=== PATIENT | male | born 1955 | race Caucasian/White ===

== ENCOUNTER 2018-05-10 12:28 | Inpatient (IN) | payer SELFPAY ==
[2018-05-10] MEDS ORDERED: NS 1,000 ML IV ONE ×3 (13:09→15:31)
[2018-05-10] MEDS ORDERED: INSULIN REGULAR HUMAN 100 UNIT, COSIGN. REQUIRED 1 EA in NS 100 ML IV ONE ×2 (13:10→14:20)
--- NOTE | 2018-05-10 13:21 | EDPHY ---
H & P Stated Complaint: N/V since yesterday. BGL in 600's Time Seen by Provider: 05/10/18 12:59 HPI/ROS: CHIEF COMPLAINT: Vomiting, hyperglycemia HISTORY OF PRESENT ILLNESS: 62-year-old male with diabetes presents with vomiting and hyperglycemia. Onset of nausea, fever and myalgias yesterday morning. Persistent vomiting since yesterday, unable to tolerate oral fluids or food. Has an insulin pump and has been bolusing with insulin regularly because of elevated blood sugar since yesterday. However blood sugar prior to arrival was 600. Continues to have a fever today, associated with mild myalgias and a slight cough. No abdominal pain or diarrhea. REVIEW OF SYSTEMS: complete 10 point ROS reviewed and is negative except for the noted elements in the HPI - Personal History Current Tetanus Diphtheria and Acellular Pertussis (TDAP): No - Medical/Surgical History Hx Asthma: No Hx Chronic Respiratory Disease: No Hx Diabetes: Yes Hx Cardiac Disease: No Hx Renal Disease: No Hx Cirrhosis: No Hx Alcoholism: No Hx HIV/AIDS: No Hx Splenectomy or Spleen Trauma: No Other PMH: DM type 1, high cholesterol, high BP - Social History Smoking Status: Never smoked Alcohol Use: Sober Drug Use: None - Physical Exam Exam: General Appearance: Alert, pleasant Eyes: Pupils equal and round, no conjunctival pallor or injection ENT, Mouth: Mucous membranes moist Neck: Normal inspection Respiratory: Lungs are clear to auscultation Cardiovascular: Regular rate and rhythm Gastrointestinal: Abdomen is soft and nontender Neurological: A&O, nonfocal exam Skin: Warm and dry Extremities: Nontender, no pedal edema Psychiatric: Mood and affect normal Constitutional: Initial Vital Signs Temperature (C) 36.8 C 05/10/18 12:35 Heart Rate 72 05/10/18 12:35 Respiratory Rate 20 05/10/18 12:35 Blood Pressure 131/57 H 05/10/18 12:35 O2 Sat (%) 97 05/10/18 12:35 O2 Delivery Mode Room Air Allergies/Adverse Reactions: No Known Allergies Allergy (Verified 05/10/18 12:38) Home Medications: Medication Instructions Recorded Aspirin [Aspirin 81mg (*)] 81 mg PO DAILY 05/10/18 Atenolol [Tenormin 50 mg (*)] 50 mg PO DAILY 05/10/18 Insulin Pump, Patient Own 1 ea MISC AD 05/10/18 Lisinopril [Zestril 20 mg (*)] 20 mg PO DAILY 05/10/18 Simvastatin [Zocor] 20 mg PO DAILY 05/10/18 Medical Decision Making - Diagnostics EKG Interpretation: EKG interpreted by me reveals normal sinus rhythm, rate 68, IVCD, no ST or T segment changes. Interpretation: Abnormal EKG Imaging Results: Imaging Impressions Chest X-Ray 05/10/18 13:18 Impression: Cardiomegaly with mild peribronchial thickening that could be related to fluid overload or less likely bronchitis. Imaging: I viewed and interpreted images myself ED Course/Re-evaluation: This patient presents with hyperglycemia and vomiting, most likely secondary to DKA. IV normal saline 2 L ordered. Patient has difficult IV access and lab tests were delayed. Ultimately two peripheral lines were established. Venous pH is 7.1 and serum ketones present. Consistent with DKA. DKA protocol initiated, including insulin drip. Patient discontinued his insulin pump upon initiation of the insulin drip. Does not meet SIRS criteria. Chest x-ray reveals cardiomegaly and possible fluid overload; no evidence of pneumonia. The patient denies shortness of breath or prior history of pulmonary edema. BNP sent. The hospitalist service was consulted for admission. Pt remained stable throughout his ED stay. I spent a total of 40 minutes of critical care time in obtaining history, performing a physical exam, bedside monitoring of interventions, collecting and interpreting tests and discussion with consultants but not including time spent performing procedures. Differential Diagnosis: Differential diagnosis includes though is not limited to pneumonia, influenza, gastroenteritis, bowel obstruction, acute coronary syndrome. - Data Points Laboratory Results: Laboratory Results 05/10/18 13:53 05/10/18 05/10/18 05/10/18 13:57 13:53 13:52 POC Hgb POC Hct Puncture Site VENOUS Patient Temperature 37.0 DEGREES DEGREES VBG pH 7.15 L (7.31-7.42) VBG HCO3 11 mEQ/L L mEQ/L (22-26) VBG Total CO2 12 mEq/L L mEq/L (21-27) VBG O2 Saturation 68 % % (65-75) VBG Base Excess -16.9 mEq/L L mEq/L (-2.5-2.5) Mixed VBG pCO2 34 mmHg L mmHg (40-44) Mixed VBG pO2 45 mmHG H mmHG (35-40) POC Sodium Sodium 136 mEq/L mEq/L (135-145) POC Potassium Potassium 5.6 mEq/L H mEq/L (3.5-5.2) POC Chloride Chloride 101 mEq/L mEq/L (97-110) Carbon Dioxide 10 mEq/l L mEq/l (22-31) Anion Gap 25 mEq/L H mEq/L (6-14) POC BUN BUN 63 mg/dL H mg/dL (7-23) Creatinine 1.9 mg/dL H mg/dL (0.7-1.3) POC Creatinine Estimated GFR 36 Glucose 715 mg/dL H* mg/dL (70-100) POC Glucose Calcium 8.6 mg/dL mg/dL (8.5-10.4) Beta-Hydroxybutyrate 8.87 mmol/L H mmol/L (0.02-0.27) Specimen Hemolysis 103 Nasal Influenza A PCR NEGATIVE FOR FLU A (NEGATIVE) Nasal Influenza B PCR NEGATIVE FOR FLU B (NEGATIVE) 05/10/18 05/10/18 12:47 12:40 POC Hgb 18.7 gm/dL H gm/dL (13.7-17.5) POC Hct 55 % H % (40-51) Puncture Site Patient Temperature VBG pH VBG HCO3 VBG Total CO2 VBG O2 Saturation VBG Base Excess Mixed VBG pCO2 Mixed VBG pO2 POC Sodium 136 mEq/L mEq/L (135-145) Sodium 136 mEq/L mEq/L (135-145) POC Potassium 5.1 mEq/L H mEq/L (3.3-5.0) Potassium 5.9 mEq/L H mEq/L (3.5-5.2) POC Chloride 102 mEq/L mEq/L (97-110) Chloride 98 mEq/L mEq/L (97-110) Carbon Dioxide 6 mEq/l L* mEq/l (22-31) Anion Gap 32 mEq/L H mEq/L (6-14) POC BUN 55 mg/dL H mg/dL (7-23) BUN 59 mg/dL H mg/dL (7-23) Creatinine 2.1 mg/dL H mg/dL (0.7-1.3) POC Creatinine 2.0 mg/dL H mg/dL (0.7-1.3) Estimated GFR 32 Glucose 753 mg/dL H* mg/dL (70-100) POC Glucose > 700 mg/dL H* mg/dL (70-100) Calcium 9.5 mg/dL mg/dL (8.5-10.4) Beta-Hydroxybutyrate 8.37 mmol/L H mmol/L (0.02-0.27) Specimen Hemolysis Nasal Influenza A PCR Nasal Influenza B PCR Medications Given: Sodium Chloride (Ns) 1,000 mls @ 500 mls/hr IV CONT ATILIO Stop: 11/06/18 16:44 Last Admin: 05/10/18 16:34 Dose: 1,000 mls Discontinued Medications Sodium Chloride (Ns) 1,000 mls @ 1,000 mls/hr IV EDNOW ONE PRN Reason: Protocol Stop: 05/10/18 14:08 Last Admin: 05/10/18 13:05 Dose: 1,000 mls Sodium Chloride (Ns) 1,000 mls @ 1,000 mls/hr IV EDNOW ONE PRN Reason: Protocol Stop: 05/10/18 15:08 Last Admin: 05/10/18 14:05 Dose: 1,000 mls Insulin Human Regular 100 unit / Miscellaneous Medication 1 ea/ Sodium Chloride 101 mls @ 0 mls/hr IV EDNOW ONE; Per Protocol PRN Reason: Protocol Stop: 05/10/18 13:11 Last Admin: 05/10/18 19:34 Dose: Not Given Insulin Human Regular 100 unit / Miscellaneous Medication 1 ea/ Sodium Chloride 101 mls @ 0 mls/hr IV EDNOW ONE; Per Protocol PRN Reason: Protocol Stop: 05/10/18 14:21 Last Admin: 05/10/18 16:11 Dose: 11.1 mls Sodium Chloride (Ns) 1,000 mls @ 0 mls/hr IV ONCE ONE PRN Reason: Wide Open Stop: 05/10/18 15:32 Last Admin: 05/10/18 15:30 Dose: 1,000 mls Point of Care Test Results: Chemistry 05/10/18 12:47 POC Sodium 136 mEq/L mEq/L (135-145) POC Potassium 5.1 mEq/L H mEq/L (3.3-5.0) POC Chloride 102 mEq/L mEq/L (97-110) POC BUN 55 mg/dL H mg/dL (7-23) POC Creatinine 2.0 mg/dL H mg/dL (0.7-1.3) POC Glucose > 700 mg/dL H* mg/dL (70-100) ISTAT H&H 05/10/18 12:47 POC Hgb 18.7 gm/dL H gm/dL (13.7-17.5) POC Hct 55 % H % (40-51) Departure - Departure Disposition: [facility] Inpatient Acute Clinical Impression: DKA (diabetic ketoacidoses) Condition: Fair
[2018-05-10] MEDS ORDERED: ALTEPLASE 2 MG VIAL IVP PRN (15:04)
[2018-05-10] MEDS ORDERED: ONDANSETRON 4 MG/2 ML VIAL IVP PRN (15:36)
[2018-05-10] MEDS ORDERED: PROMETHAZINE HCL 25 MG/ML INJ IVP PRN (15:36)
[2018-05-10] MEDS ORDERED: HYDROmorphONE/DILAUDID 1 MG/ML INJ IVP PRN (15:36)
[2018-05-10] MEDS ORDERED: oxyCODONE IR 5 MG TAB PO PRN (15:36)
[2018-05-10] MEDS ORDERED: ONDANSETRON DISINTEGRATING 4 MG TAB PO PRN (15:36)
[2018-05-10] MEDS ORDERED: ACETAMINOPHEN 325 MG TAB PO PRN (15:36)
[2018-05-10] MEDS ORDERED: LORazepam 0.5 MG TAB PO PRN (15:36)
[2018-05-10] MEDS ORDERED: HYDROCODONE/APAP 5/325 TAB PO PRN (15:36)
--- NOTE | 2018-05-10 16:10 | ASMTCMCOM ---
CM Note CM Note Notes: Pt involvement at request of behavioral analyst. Pt has no insurance and is being admitted for HBL. Pt was very concerned about the cost of admission and did not want to stay. This SW spoke with pt advocate Shannon Lopez from [facility]. After speaking with the pt. Shannon determined that the the pt is over income and she requested follow up from the financial counseling office. Date Signed: 05/10/2018 04:09 PM Electronically Signed By:Lindsay Paris LCSW
[2018-05-10] MEDS ORDERED: NS 1,000 ML IV SCH (16:45)
--- NOTE | 2018-05-10 18:48 | PDGENHP ---
History and Physical - Chief Complaint n/v/ elevated glucose - History of Present Illness 62 yo M with hx of IDDM with an insulin pump in place presenting with complaints of fevers and myalgias yesterday with increasing glucose over the course of the day followed by significant nausea and vomiting beginning yesterday afternoon. He notes he was giving himself insulin boluses via the pump all day yesterday but despite that the sugars have continued to rise-- yesterday largely in the 300's, today up to the 600s. He notes he has not had this happen in many years, but he has had DKA years ago. He is currently feeling better after receiving fluids in the ER and has not had fever or chills today, no longer having nausea. He is very concerned that he has not been started yet on insulin here as there was some issues in getting an IV in place but otherwise no real active complaints. He notes he has had relatively good control of his diabetes recently with a most recent a1c of 7. History Information - Allergies/Home Medication List Allergies/Adverse Reactions: No Known Allergies Allergy (Verified 05/10/18 12:38) Home Medications: Aspirin [Aspirin 81mg (*)] 81 mg PO DAILY 05/10/18 [Last Taken Unknown] Atenolol [Tenormin 50 mg (*)] 50 mg PO DAILY 05/10/18 [Last Taken Unknown] Insulin Pump, Patient Own 1 ea [facility] [place] 05/10/18 [Last Taken Unknown] Lisinopril [Zestril 20 mg (*)] 20 mg PO DAILY 05/10/18 [Last Taken Unknown] Simvastatin [Zocor] 20 mg PO DAILY 05/10/18 [Last Taken Unknown] I have personally reviewed and updated: family history, medical history, social history, surgical history - Past Medical History diabetes type 1 (associated retinopathy), hypertension, hyperlipidemia - Surgical History Reports: no pertinent surgical hx - Family History Positive for: non-pertinent - Social History Smoking Status: Never smoked Alcohol Use: Sober Drug Use: None Additional social history: lives in [place], works as a supervisor building maintenance Review of Systems Review of Systems: ROS: 10pt was reviewed & negative except for what was stated in HPI & below Physical Exam Physical Exam: Temp Pulse Resp BP Pulse Ox 36.7 C 65 20 114/68 94 05/10/18 17:00 05/10/18 17:00 05/10/18 17:00 05/10/18 17:00 05/10/18 17:00 Constitutional: no apparent distress, appears nourished Eyes: PERRL, anicteric sclera Ears, Nose, Mouth, Throat: hearing normal, dry mucous membranes Cardiovascular: regular rate and rhythym, no murmur, rub, or gallop, systolic murmur Respiratory: no respiratory distress, no rales or rhonchi Gastrointestinal: normoactive bowel sounds, soft, non-tender abdomen Genitourinary: no bladder tenderness Skin: warm, normal color Musculoskeletal: no muscle tenderness Neurologic: AAOx3 Psychiatric: interacting appropriately, not anxious, not encephalopathic Lab Data & Imaging Review 05/10/18 16:22 POC Hgb 15.0 gm/dL (13.7-17.5) 05/10/18 16:28 POC Hct 44 % (40-51) 05/10/18 16:28 POC Blood Source VENOUS 05/10/18 18:21 Puncture Site VENOUS 05/10/18 17:11 Patient Temperature 36.5 DEGREES 05/10/18 18:21 VBG pH 7.22 (7.31-7.42) L 05/10/18 17:11 POC VBG pH 7.31 (7.31-7.42) 05/10/18 18:21 POC VBG pCO2 35 mmHg (40-44) L 05/10/18 18:21 POC VBG pO2 TNP 05/10/18 18:21 VBG HCO3 15 mEQ/L (22-26) L 05/10/18 17:11 POC VBG HCO3 18 mEq/L (22-26) L 05/10/18 18:21 VBG Total CO2 17 mEq/L (21-27) L 05/10/18 17:11 POC VBG Total CO2 19 mEq/L (21-27) L 05/10/18 18:21 VBG O2 Saturation 69 % (65-75) 05/10/18 17:11 VBG Base Excess -11.5 mEq/L (-2.5-2.5) L 05/10/18 17:11 POC VBG Base Excess -9.0 mEq/L (-2.5-2.5) L 05/10/18 18:21 Mixed VBG pCO2 39 mmHg (40-44) L 05/10/18 17:11 Mixed VBG pO2 43 mmHG (35-40) H 05/10/18 17:11 POC Mix VBG O2 Sat TNP 05/10/18 18:21 POC Sodium 141 mEq/L (135-145) 05/10/18 16:28 Sodium 137 mEq/L (135-145) 05/10/18 16:22 POC Potassium 4.8 mEq/L (3.3-5.0) 05/10/18 16:28 Potassium 5.7 mEq/L (3.5-5.2) H 05/10/18 16:22 POC Chloride 107 mEq/L (97-110) 05/10/18 16:28 Chloride 109 mEq/L (97-110) 05/10/18 16:22 Carbon Dioxide 7 mEq/l (22-31) L* 05/10/18 16:22 Anion Gap 21 mEq/L (6-14) H 05/10/18 16:22 POC BUN 57 mg/dL (7-23) H 05/10/18 16:28 BUN 63 mg/dL (7-23) H 05/10/18 16:22 Creatinine 1.7 mg/dL (0.7-1.3) H 05/10/18 16:22 POC Creatinine 1.7 mg/dL (0.7-1.3) H 05/10/18 16:28 Estimated GFR 41 05/10/18 16:22 Glucose 616 mg/dL (70-100) H* 05/10/18 16:22 POC Glucose 460 mg/dL (70-100) H 05/10/18 18:19 POC Lactic Acid Joel 1.9 mmol/L (0.7-2.1) 05/10/18 18:21 Calcium 8.2 mg/dL (8.5-10.4) L 05/10/18 16:22 NT-Pro-B Natriuret Pep 871 pg/mL (0-125) H 05/10/18 16:22 Beta-Hydroxybutyrate 7.53 mmol/L (0.02-0.27) H 05/10/18 15:18 Specimen Hemolysis 177 05/10/18 16:22 Nasal Influenza A PCR NEGATIVE FOR FLU A (NEGATIVE) 05/10/18 13:57 Nasal Influenza B PCR NEGATIVE FOR FLU B (NEGATIVE) 05/10/18 13:57 Visualized and Interpreted Chest x-ray results: Yes Chest X-Ray results: other (cardiomegaly, peribronchial thickening) Visualized and Interpreted EKG results: Yes EKG Interpretation: Positive for: normal sinsus rhythm Assessment & Plan Assessment: DKA (diabetic ketoacidoses) (Acute) 62 yo M with hx of IDDM presenting with dka # DKA: in the setting of preceding fever/chills and presumably triggered by acute viral infection--cxr w/o clear pna, flu neg but resp pcr pending, will get GI pathogen panel as well given GI sxs yesterday. Admitted to ICU, started on DKA protocol. Will continue to monitor serial labs--ph of 7.15 on arrival. Replete electrolytes as needed, clear liquids for now, hopefully transition back to SC insulin in am # fever/chills/myalgias/n/v: as above suspect viral precipitant to above, respiratory and GI pathogen panels ordered # MOOKIE: baseline creatinine not available in our system but suspect creatinine of 1.7 represents MOOKIE in this patient with DKA and persistent n/v. Will aggressively volume resuscitate per DKA protocol and recheck in am # htn: continue home meds other than holding lisinopril given mookie # IP status, suspect will need > 48 hours stay for eval/mgmt of above, patient with critical illness requiring ICU level care, > 35 min critical care time spent on admission in evaluation of labs/imaging and coordination of care with ER doctors/nurses Patient new to my care. Old records reviewed and summarized as above. Care plan reviewed with ER doctor. Further hx obtained from patients nephew present at bedside.
[2018-05-10 19:25] LABS: PLATELET COUNT 244 10^3/uL (150-400)
--- NOTE | 2018-05-10 20:57 | CPEKG ---
Test Reason : OPEN Blood Pressure : / mmHG Vent. Rate : 068 BPM Atrial Rate : 067 BPM P-R Int : 170 ms QRS Dur : 116 ms QT Int : 440 ms P-R-T Axes : 004 008 005 degrees QTc Int : 469 ms Sinus rhythm Nonspecific intraventricular conduction delay Confirmed by Lexis Ness ([id number]) on 05/10/2018 8:57:04 PM Referred By: Confirmed By:Lexis Ness
[2018-05-10] MEDS ORDERED: INSULIN REGULAR HUMAN 100 UNIT in NS 100 ML IV SCH (23:00)
--- NOTE | 2018-05-11 04:27 | PDMN ---
Medical Necessity Medical necessity: [facility] [place]: DKA pt presents with fever, myalgias increasing glucose , N/V, glucose initial 753, 715, 616, b-hydroxybutyrate 8.37, ph 7.15, serum bicarb 6, likely viral precipitant, ROBERT - Cr 2.1, , HTN , anticipate > 2 MN ongoing med nec care, further monitoring, eval and tx.
[2018-05-11 07:26] LABS: PLATELET COUNT 196 10^3/uL (150-400)
[2018-05-11] MEDS: ASPIRIN 81 MG CHEWABLE TAB PO SCH ×2 (08:41→08:42)
[2018-05-11] MEDS ORDERED: ATENOLOL 50 MG TAB PO SCH (09:00)
[2018-05-11] MEDS ORDERED: ENOXAPARIN 40 MG/0.4 ML SYR SC SCH (09:00)
[2018-05-11] MEDS ORDERED: ATORVASTATIN CALCIUM 10 MG TAB PO SCH (09:00)
[2018-05-11] MEDS ORDERED: D50W 25 GM/50 ML SYR IVP PRN (10:10)
[2018-05-11 12:17] VITALS: BP 154/75
[2018-05-11 16:10] LABS: PLATELET COUNT 229 10^3/uL (150-400)
--- NOTE | 2018-05-11 16:38 | GCON ---
CRITICAL CARE CONSULTATION DATE OF CONSULTATION: 05/11/2018 HISTORY OF PRESENT ILLNESS: This patient is a 62-year-old male with a history of diabetes using an i nsulin pump which has been in place previously, who complained of fevers and myalgias yesterday with increasing levels of glucose. He usually manages this quite well and has a most recent A1c of 7. He developed nausea and vomiting yesterday afternoon and was unable to keep up with his rising glucoses . He has had DKA in the past and came to the emergency room and was found to be in diabetic ketoacid osis. He was given IV fluids in the emergency department and felt substantially better. He denied a ny cough or sinus congestion or breathing issues. There was no chest pain. No recent surgeries or t raumas. No diarrhea and only the acute onset of symptoms yesterday. REVIEW OF SYSTEMS: Otherwise negative. PAST MEDICAL HISTORY: Includes diabetes, diabetic retinopathy, hypertension, hyperlipidemia. PAST SURGICAL HISTORY: None. FAMILY HISTORY: Noncontributory. SOCIAL HISTORY: He is a nonsmoker. No alcohol or IV drug use. 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 MEDICATIONS: Currently include [place], aspirin, atenolol, atorvastatin, Lovenox, Dilaudid, Zofran, ox ycodone, Phenergan, normal saline. PHYSICAL EXAMINATION: VITAL SIGNS: He was been afebrile since he has been here. Blood pressure 154 /75, heart rate of 65, respirations 20, oxygen saturation 100% on 2 L. GENERAL APPEARANCE: He was a very pleasant male in no apparent distress and able to speak in full sentences without using accesso ry muscles for breathing. He is alert and oriented x3. HEENT: Pupils equally round and reactive to light. Nonicteric and noninjected. Mucous membranes are moist without erythema or exudate. NECK: Supple without adenopathy or jugular vein distention. CHEST: Breath sounds were clear to auscultat ion bilaterally without wheezes, rubs or rales. HEART: Regular rate and rhythm without obvious murm ur. ABDOMEN: Soft, nontender, nondistended with normoactive bowel sounds. EXTREMITIES: Show no cl ubbing, cyanosis, or edema. There were some abrasions on his left knee that were quite superficial a nd did not look infected. There was no clubbing, cyanosis or edema. NEUROLOGICAL: Nonfocal includi ng cranial nerves, deep tendon reflexes. OBJECTIVE DATA: Includes a white count of 19.1 which is slightly elevated since arrival, hematocrit 41.6, and platelets of 196. His basic metabolic panel shows a bicarb of 19, but his anion gap closed from the initial 32, is now 8. Glucose in the 160-170 range. BNP was 871 on admission. He did hav e a chest x-ray that showed suggested peribronchial thickening which I thought could be due to overlo ad or underlying lung disease, but there was no overt CHF. Urinalysis was unremarkable with the exce ption of obvious ketones. Respiratory viral panel was negative. Influenza A and B were also negativ e. ASSESSMENT AND PLAN: 1. Nonspecific viral illness that is likely what triggered his diabetic ketoacidosis. Procalcitonin is pending at this time, but no specific antibiotic therapy is indicated at the moment. We will see what the procalcitonin shows and whether or not we have to continue further workup looking for infec tion. 2. Diabetic ketoacidosis as described above. This was treated appropriately with insulin drip as we ll as aggressive intravenous fluids. His oxygen saturation was 96% to 97% on room air while I spoke to him in the room. I see no evidence of heart failure, and I do not feel that diuretics would be ap propriate in this situation. We should transition him back to his pump and make sure that his pump i s working appropriately, which could be another potential cause. 3. Acute kidney injury. He was dehydrated when he came in with a creatinine 2.1, is down to 1.2 wit h adequate urine output which is now resolving. 4. Hypoxemia as described above. This seems to be getting better at this time. I agree with downgr ading him to a med-surg status. /[id number]/MODL
--- NOTE | 2018-05-11 18:12 | PDDCSUM ---
Discharge Summary Discharge Summary: Date of service: 05/10/2018 - 05/11/2018 Hx: 62 yo male with h/o type 1 DM presented to ED with nausea and vomiting, found to be in DKA. Hospital course: pt was admitted to ICU on DKA protocol with aggressive IVF resuscitation and insulin drip. His creatinine was 2.1 on admission, this normalized with IVF's. His anion gap closed, his acidemia improved and he restarted his insulin pump early this am. His nausea/vomiting resolved. He did not have diarrhea. He had a leukocytosis, which could be a stress response from acute N/V and DKA. He had no fevers. No cough or SOB. No hypoxemia. No urinary symptoms. Respiratory viral PCR was neg. He feels much better on day of discharge and wishes to discharge home as he does not have insurance. His repeat CBC did show a down-trending wbc count. I advised him to have labs rechecked in 2-3 days with his PCP. Dispo: pt discharged home in stable condition F/U: PCP DC Meds: continue home insulin pump, hold lisinopril until rpt bmp by pcp to ensure Cr stable. There are no new medications on discharge
== END 2018-05-11 16:45 | disposition home or self-care (01) | DRG 638 ==
LOC: F2N 17:28
PROVIDERS: ADMIT Internal Medicine; ATTEND Hospitalist
DX: E10.10 Type 1 diabetes mellitus with ketoacidosis without coma (principal); B34.9 Viral infection, unspecified; N17.9 Acute kidney failure, unspecified; I10 Essential (primary) hypertension; E86.0 Dehydration; R09.02 Hypoxemia
CPT/HCPCS: 82435-PO; 82565-PO; 82947-PO; 83605-PO; 84132-PO; 84295-PO; 84520-PO; 85014-PO; 96374; J1650; J1815